=== PATIENT | female | born 1955 | race Caucasian/White ===

== ENCOUNTER 2018-04-04 09:38 | Emergency (ER) | payer OTHER ==
[2018-04-04] MEDS ORDERED: KETOROLAC TROMETHAMINE 30 MG/ML SOL IM ONE (09:45)
[2018-04-04] MEDS ORDERED: ONDANSETRON HCL 4 MG/2 ML SOL ONE (09:46)
[2018-04-04] MEDS ORDERED: KETOROLAC TROMETHAMINE 30 MG/ML SOL IV ONE (09:48)
[2018-04-04] MEDS ORDERED: ONDANSETRON HCL 4 MG/2 ML SOL IV ONE (09:48)
[2018-04-04] MEDS ORDERED: ONDANSETRON 4 MG ODT BU ONE (09:50)
[2018-04-04] MEDS ORDERED: KETOROLAC TROMETHAMINE 30 MG/ML SOL ONE (09:51)
[2018-04-04 10:02] VITALS: RESP 44; TEMP 97
[2018-04-04 10:03] LABS: BASOPHILS % (AUTO) 1 % (0-3); EOSINOPHILS % (AUTO) 5 % (0-9); HEMATOCRIT 50 % (35-47); HEMOGLOBIN 16.4 gm/dl (12.0-15.5); LYMPHOCYTES % (AUTO) 17.3 % (10-50); MEAN CORPUSCULAR VOLUME 91 fL (81-99); MONOCYTES % (AUTO) 6.5 % (0-12); NEUTROPHILS % (AUTO) 70.2 % (37-80)
[2018-04-04 10:08] LABS: APPEARANCE,URINE Cloudy; BILIRUBIN,URINE NEGATIVE (NEGATIVE); COLOR,URINE Yellow; GLUCOSE, URINE (UA) TRACE (NEGATIVE); KETONES,URINE NEGATIVE (NEGATIVE); LEUKOCYTE ESTERASE ,URINE NEGATIVE (NEGATIVE); NITRATE,URINE NEGATIVE (NEGATIVE); OCCULT BLOOD,URINE TRACE INTACT (NEG-TRACE); UROBILINOGEN,URINE 0.2 (0.2-1.0 EU)
[2018-04-04] MEDS ORDERED: SODIUM CHLORIDE 0.9% FLUSH 10 ML SOL IV PRN (10:10)
[2018-04-04 10:12] LABS: CALCIUM 9.2 mg/dl (8.5-10.1); CARBON DIOXIDE 30.3 mEq/L (21-32); CREATININE 0.86 mg/dl (0.60-1.00)
[2018-04-04 10:20] LABS: RBC,URINE 0-3 (0-3AV/HPF); WBC,URINE 0-2 (0-5AV/HPF)
[2018-04-04 10:21] LABS: BACTERIA NEGATIVE (< 1+); CRYSTALS 2+ AMORPH PHOSPHATES (0-3 AVE/HPF)
[2018-04-04] MEDS ORDERED: MORPHINE SULFATE 10 MG/ML SOL IV ONE (11:17)
[2018-04-04] MEDS ORDERED: MORPHINE SULFATE 10 MG/ML SOL ONE (11:19)
[2018-04-04] MEDS ORDERED: PROCHLORPERAZINE EDISYLATE 5 MG/ML SOL IV ONE (11:23)
[2018-04-04] MEDS ORDERED: PROCHLORPERAZINE EDISYLATE 5 MG/ML SOL ONE (11:24)
[2018-04-04] MEDS ORDERED: CYCLOBENZAPRINE 10 MG TAB PO ONE (11:31)
[2018-04-04] MEDS ORDERED: SODIUM CHLORIDE 0.9% 1000ML 1,000 ML IV ONE (11:34)
[2018-04-04] MEDS ORDERED: CYCLOBENZAPRINE 10 MG TAB ONE (11:44)
[2018-04-04] MEDS ORDERED: TAMSULOSIN HYDROCHLORIDE 0.4 MG CAP ONE (11:48)
[2018-04-04] MEDS ORDERED: CIPROFLOXACIN HCL 500 MG TAB PO STA (12:46)
[2018-04-04 13:12] VITALS: BP 138/96; PULSE 72; O2SAT 95
[2018-04-04] MEDS ORDERED: CIPROFLOXACIN HCL 500 MG TAB PO ONE (13:22)
[2018-04-04] MEDS ORDERED: TAMSULOSIN HYDROCHLORIDE 0.4 MG CAP PO SCH (21:00)
== END 2018-04-04 13:33 | disposition home or self-care (01) ==
LOC: ED 09:38
DX: M54.9 Dorsalgia, unspecified (principal); N23 Unspecified renal colic; N13.30 Unspecified hydronephrosis; D72.829 Elevated white blood cell count, unspecified; R11.0 Nausea
CPT/HCPCS: 36415; 74176; 80048; 81001; 85025; 96365; 96374; 96375; 99284; 99285; J0780; J1885; J2270; J2405; A9270-GY

== ENCOUNTER 2018-04-23 14:25 | Emergency (ER) | payer OTHER ==
[2018-04-23] MEDS: SODIUM CHLORIDE 0.9% FLUSH 10 ML SOL IV PRN ×3 (14:27→19:30)
[2018-04-23] MEDS ORDERED: HYDROMORPHONE 1 MG/ML SYRINGE IV ONE ×2 (14:33→14:43)
[2018-04-23] MEDS ORDERED: ONDANSETRON HCL 4 MG/2 ML SOL IV ONE ×2 (14:33→18:24)
[2018-04-23] MEDS ORDERED: HYDROMORPHONE 1 MG/ML SYRINGE ONE ×2 (14:34→14:43)
[2018-04-23] MEDS ORDERED: ONDANSETRON HCL 4 MG/2 ML SOL ONE ×2 (14:34→18:26)
[2018-04-23] MEDS ORDERED: SODIUM CHLORIDE 0.9% 1000ML 1,000 ML IV ONE ×2 (14:50→16:11)
[2018-04-23 15:01] VITALS: TEMP 97.9
[2018-04-23] MEDS ORDERED: KETOROLAC TROMETHAMINE 30 MG/ML SOL IV ONE (15:03)
[2018-04-23] MEDS ORDERED: KETOROLAC TROMETHAMINE 30 MG/ML SOL ONE (15:04)
[2018-04-23 15:09] VITALS: BP 159/95; PULSE 74; RESP 18; O2SAT 97
[2018-04-23] MEDS ORDERED: PROCHLORPERAZINE EDISYLATE 5 MG/ML SOL IV ONE (18:50)
[2018-04-23] MEDS ORDERED: PROCHLORPERAZINE EDISYLATE 5 MG/ML SOL ONE (19:23)
== END 2018-04-23 20:02 | disposition home or self-care (01) ==
LOC: ED 14:25
DX: N20.1 Calculus of ureter (principal); N13.30 Unspecified hydronephrosis; K76.0 Fatty (change of) liver, not elsewhere classified; K57.90 Diverticulosis of intestine, part unspecified, without perforation or abscess without bleeding; I71.00 Dissection of unspecified site of aorta; N15.1 Renal and perinephric abscess; R93.5 Abnormal findings on diagnostic imaging of other abdominal regions, including retroperitoneum
CPT/HCPCS: 74176; 82962; 96365; 96366; 96374; 96375; 99283; 99285; J0780; J1885; J2405; J1170

== ENCOUNTER 2018-07-03 11:07 | Emergency (ER) | payer OTHER ==
[2018-07-03 11:40] VITALS: PULSE 71; RESP 14; TEMP 96.9; O2SAT 99
[2018-07-03 12:11] LABS: BASOPHILS % (AUTO) 1 % (0-3); EOSINOPHILS % (AUTO) 2 % (0-9); HEMATOCRIT 48 % (35-47); HEMOGLOBIN 16.2 gm/dl (12.0-15.5); LYMPHOCYTES % (AUTO) 9.4 % (10-50); MEAN CORPUSCULAR HEMOGLOBIN 30.6 pg (27.0-32.0); MEAN CORPUSCULAR HGB CONC 33.6 gm/dl (32.0-36.0); MEAN CORPUSCULAR VOLUME 91 fL (81-99); MONOCYTES % (AUTO) 4.4 % (0-12)
[2018-07-03 12:14] LABS: APPEARANCE,URINE Clear; BILIRUBIN,URINE NEGATIVE (NEGATIVE); COLOR,URINE Yellow; GLUCOSE, URINE (UA) NEGATIVE (NEGATIVE); KETONES,URINE NEGATIVE (NEGATIVE); LEUKOCYTE ESTERASE ,URINE NEGATIVE (NEGATIVE); NITRATE,URINE NEGATIVE (NEGATIVE); OCCULT BLOOD,URINE 2+ (NEG-TRACE); PH,URINE 8.5; UROBILINOGEN,URINE 0.2 (0.2-1.0 EU)
[2018-07-03 12:23] LABS: BACTERIA TRACE (< 1+); CRYSTALS NEGATIVE (0-3 AVE/HPF); RBC,URINE 35-40 (0-3AV/HPF); WBC,URINE 0-2 (0-5AV/HPF)
[2018-07-03 13:54] VITALS: BP 145/101
[2018-07-03 14:00] LABS: CALCIUM 9.4 mg/dl (8.5-10.1); CARBON DIOXIDE 26.2 mEq/L (21-32); CREATININE 0.76 mg/dl (0.60-1.00); POTASSIUM 3.7 mMol/L (3.5-5.1)
== END 2018-07-03 13:47 | disposition home or self-care (01) ==
LOC: ED 11:07
DX: R10.9 Unspecified abdominal pain (principal)
CPT/HCPCS: 36415; 80048; 81001; 85025; 87088; 99282; 99283